=== PATIENT | female | born 1965 | race Caucasian/White ===

== ENCOUNTER → 2016-08-12 | Outpatient (CLI) | payer BC ==
--- NOTE | 2016-08-12 12:45 | MAMMOGRAPHY REPORT ---
BILATERAL DIGITAL SCREENING MAMMOGRAM TOMOSYNTHESIS WITH CAD: 08/12/2016 CLINICAL HISTORY: The patient reports to the technologist that the lump in the left breast that she felt on last years exam is unchanged. She notes no new lumps. TECHNIQUE: Breast tomosynthesis in addition to standard 2D mammography was performed. Current study was also evaluated with a Computer Aided Detection (CAD) system. COMPARISON: Comparison is made to exams dated: 07/17/2015 mammogram, 05/08/2014 mammogram, 04/04/2013 mammogram, 05/03/2013 mammogram - [facility] [address], and 11/20/2010 mammogram. BREAST COMPOSITION: The tissue of both breasts is extremely dense, which lowers the sensitivity of mammography. FINDINGS: No suspicious masses, calcifications, or areas of architectural distortion are noted in e ither breast. There has been no significant interval change compared to prior exams. IMPRESSION: ACR BI-RADS CATEGORY 1: NEGATIVE There is no mammographic evidence of malignancy. A 1 year screening mammogram is recommended. The p atient will receive written notification of the results. Approximately 10% of breast cancers are not detected with mammography. A negative mammographic repor t should not delay biopsy if a clinically suggestive mass is present. Sushma Georges M.D. ah/:08/12/2016 12:20:11 Paint Spray Inspector: Yoon POLO)(Ronald), [facility] [address] letter sent: Normal 1/2 BI-RADS Code: ACR BI-RADS Category 1: Negative
== END | disposition home or self-care (01) ==
LOC: C.MAMM 11:42
PROVIDERS: ATTEND Family Medicine
DX: Z12.31 Encounter for screening mammogram for malignant neoplasm of breast (principal)

== ENCOUNTER → 2016-12-01 | Outpatient (CLI) | payer BC ==
--- NOTE | 2016-12-01 12:03 | DIAGNOSTIC IMAGING REPORT ---
THYROID ULTRASOUND HISTORY: Pain. Nodule. K21.9 Laryngopharyngeal reflux PATIENT'S SISTER RECENTLY DIAGNOSE COMPARISON: None. FINDINGS: Right lobe: Maximum dimension 4.4 cm. Isoechoic nodule measuring 1 cm centrally. Hypoechoic nodules upper pole measuring 3 mm. Left lobe: Maximum dimension 4.3 cm. No significant nodularity. Isthmus: No nodules. IMPRESSION: 2 right thyroid lobe nodules, the largest of which measures approximately 10 mm x 9 mm. 6 month follow-up or fine needle aspiration is suggested Electronically signed by: Luis Smith M.D. 12/01/2016 12:01 PM Dictated Date/Time: 12/01/2016 11:56 AM
== END | disposition home or self-care (01) ==
LOC: C.ULTR 11:31
DX: K21.9 Gastro-esophageal reflux disease without esophagitis (principal)

== ENCOUNTER → 2016-12-10 | Outpatient (CLI) | payer BC ==
--- NOTE | 2016-12-10 11:09 | Discharge Instructions ---
Discharge Instructions Procedure Procedure Date: Dec 10, 2016. Reason for visit: Thyroid Nodule *Dr Rodríguez To Do. Discharge Discharge Date: Dec 10, 2016. Discharge Diagnosis: s/p right lobe thyroid nodule FNA Instructions Activity Recommendations: No limitations Return to School/Work: no limitations Recommended Home Diet: No Limitations Provider Instructions: ACTIVITY RECOMMENDATIONS: * Rest today. * Resume regular activity in one day. MEDICATIONS: * May take Tylenol or Ibuprofen as needed for pain. DIET: * Resume previous diet. SPECIAL CARE INSTRUCTIONS: Call your doctor if: * Temperature above 101 degrees F. * Pain not relieved by pain medicine ordered. * Increased drainage or redness from incision. * Notify your doctor with any questions or concerns. Call your doctor or go to the nearest Emergency Department if you experience: * Increased chest pain or shortness of breath. FOLLOW UP VISIT: Follow-up with Referring Physician as scheduled. Pasquale Villarreal Recommendations: Call your doctor if: * Temperature above 101 degrees * Pain not relieved by pain medicine ordered * There is increased drainage or redness from any incision * You have any unanswered questions or concerns. Your Doctors Instructions noted above were prepared by provider Vaughn Rodríguez. Patient Signature Section: Patient Instructions Signature Page Courtney King Patient (or Guardian) Signature/Date: I have read and understand the instructions given to me by my caregivers. Caregiver/RN/Doctor Signature/Date: The above-named patient and/or guardian has received patient instructions on this date. + Original Patient Signature Page (only) stays with chart. Please make copy for patient.
--- NOTE | 2016-12-10 11:27 | DIAGNOSTIC IMAGING REPORT ---
ULTRASOUND GUIDED FINE NEEDLE ASPIRATION OF 1 CM RIGHT LOBE THYROID NODULE CLINICAL HISTORY: Thyroid nodule. COMPARISON STUDY: Thyroid ultrasound December 01, 2016. PROCEDURE: The procedure, risks and benefits were discussed with the patient and informed written consent was obtained. The procedure was performed by Dr. Rodríguez following a timeout. Sonography again revealed the 1 cm isoechoic nodule within hypoechoic halo within the right thyroid lobe. This was targeted for fine-needle aspiration. Skin was prepped and draped in sterile fashion and local anesthesia was achieved with 1% lidocaine. Under direct ultrasound guidance, 1 25-gauge fine needle aspiration was performed. The sample was deemed preliminarily adequate by pathology. The patient tolerated the procedure well and no immediate complications were evident. IMPRESSION: Ultrasound guided fine needle aspiration of 1 cm right lobe thyroid nodule. Electronically signed by: Vaughn Rodríguez M.D. 12/10/2016 11:26 AM Dictated Date/Time: 12/10/2016 11:24 AM
== END | disposition home or self-care (01) ==
LOC: C.ULTR 10:32
PROVIDERS: ATTEND Physician Assistant
DX: E04.1 Nontoxic single thyroid nodule (principal)

== ENCOUNTER → 2017-08-24 | Outpatient (CLI) | payer OTHER ==
--- NOTE | 2017-08-25 15:23 | MAMMOGRAPHY REPORT ---
BILATERAL DIGITAL SCREENING MAMMOGRAM TOMOSYNTHESIS WITH CAD: 08/24/2017 CLINICAL HISTORY: Routine screening. Patient has no complaints. TECHNIQUE: Breast tomosynthesis in addition to standard 2D mammography was performed. Current study was also evaluated with a Computer Aided Detection (CAD) system. COMPARISON: Comparison is made to exams dated: 08/12/2016 mammogram, 07/17/2015 mammogram, 05/08/2014 ma mmogram, 04/04/2013 mammogram - [facility], and 11/20/2010 mammogram. BREAST COMPOSITION: The tissue of both breasts is extremely dense, which lowers the sensitivity of m ammography. FINDINGS: The parenchymal pattern is unchanged. No developing mass, architectural distortion or clus ter of suspicious microcalcifications is seen in either breast. IMPRESSION: ACR BI-RADS CATEGORY 2: BENIGN There is no mammographic evidence of malignancy. A 1 year screening mammogram is recommended. The pa tient will receive written notification of the results. Approximately 10% of breast cancers are not detected with mammography. A negative mammographic report should not delay biopsy if a clinically suggestive mass is present. Kiana Covarrubias M.D. ay/:08/24/2017 16:46:35 Motorcycle Racer: Char GUEVARA(Shamar)(M), [facility] letter sent: Normal 1/2 BI-RADS Code: ACR BI-RADS Category 2: Benign
== END | disposition home or self-care (01) ==
LOC: C.MAMM 12:13
PROVIDERS: ATTEND Family Medicine
DX: Z12.31 Encounter for screening mammogram for malignant neoplasm of breast (principal)